=== PATIENT | female | born 2000 | race Two or more races ===

== ENCOUNTER 2020-08-01 22:14 | Emergency (ER) | payer MEDICAID ==
[~2020-08-01] VITALS: Ht 162.6 cm; Wt 68.0 kg
[2020-08-01 22:14] VITALS: BP 128/80
[2020-08-01] MEDS ORDERED: NEOMYCIN-BACITRACIN-POLYM UNITDOSE PKG TOP OINT TOP ONE (23:15)
[2020-08-01] MEDS ORDERED: IBUPROFEN 600 MG TAB PO ONE (23:30)
== END 2020-08-01 23:37 | disposition home or self-care (01) ==
LOC: ER 22:19
DX: S99.921A Unspecified injury of right foot, initial encounter (principal); W22.8XXA Striking against or struck by other objects, initial encounter; Y93.89 Activity, other specified; Y92.89 Other specified places as the place of occurrence of the external cause; Y99.8 Other external cause status